=== PATIENT | female | born 1990 | race Caucasian/White ===

== ENCOUNTER 2020-12-25 10:48 | Emergency (ER) | payer MEDICAID, SELFPAY ==
[2020-12-25 10:54] VITALS: BP 126/80; PULSE 82; RESP 20; TEMP 36.6; O2SAT 98
--- NOTE | 2020-12-25 11:02 | ED.GENADUL_ITS ---
Discharge Plan Disposition Patient Disposition: HOME Condition: Stable Discharge Details Clinical Impression: Threatened in first trimester Primary Care Provider: Unknown,Unknown ED Provider: Allan Rodriguez Home Meds and New Rx's Prescriptions: No Action No Known Home Meds RF: 0 Discharge Instructions Instructions: Miscarriage (ED) Additional Instructions: Your examination is very concerning for a miscarriage. Your blood type is O+ and you do not require an injection of RhoGam now. Your beta hCG quantitative is 2298, I do recommend that you have this rechecked in the next 2 days. I have set you up for an ultrasound tomorrow to further evaluate your ongoing symptoms. I recommend reaching out to our radiology department first thing the morning at 7:30 AM. In the meantime please watch for new or worsening symptoms and return to the ER for any concerns. Otherwise I recommend that you contact your enterprise business architect and your primary care provider tomorrow to discuss your ER visit, ongoing symptoms, and need for outpatient reevaluation. Discharge Data Discharge Date/Time-TO BE ENTERED AT DEPARTURE: 12/25/20 12:35 Medical Decision Making This is a 30-year-old female G1, P0, had an [id number] positive test, ultrasound on Saturday at [facility] revealed a viable , 6 weeks 6 days. Patient states that on she developed lower abdominal cramping and spotting, both her enterprise business architect and validation technician knew that she was symptomatic at that time since then she states that she has had increased vaginal bleeding and noticed some clots but no tissues. Clinically she appears well, nontoxic, hemodynamically stable. Blood pressure 126/80, pulse 82, afebrile, O2 sats 98% on room air. Plan is to obtain IV access, routine laboratory values including a type and screen as well as a quantitative hCG. Patient is unsure of her blood type, may need RhoGam if Rh-. Unfortunately it is the weekend and I cannot obtain ultrasound emergently at this time but will set her up for an ultrasound tomorrow morning. Given her other care is at [facility] we did discuss that she would be interested in obtaining primary care and/or METAL FABRICATOR WELDER care through our facility the patient would like to continue with her current regimen. Patient is comfortable with this plan and has no additional questions or concerns. We did discuss pelvic exam in the setting but after using shared decision-making, likely will not change the outcome here in the ER, and patient will have ultrasound in the morning. I do believe this to be a reasonable plan. Laboratory values reveal no leukocytosis or anemia. Platelet count 297. Electrolytes unremarkable, creatinine 0.6 with a GFR greater than 60. Beta hCG 2290. Urinalysis moderate blood 20-50 red cells but no signs of infection. Blood type O+. Patient remains hemodynamically stable. We discussed her presentation, evaluation and lab values. Examination is certainly concerning for miscarriage. Patient plans to have ultrasound tomorrow morning to further evaluate her symptoms and possibly confirm or concerns. Strict discharge and return precautions provided. Otherwise she will contact her enterprise business architect tomorrow to make her aware of her ER visit need for outpatient reevaluation. Patient has no additional questions or concerns and is comfortable with this plan. This documentation was generated using [employer] system, please disregard any oddities of phrase or misspellings. Lab Data Lab results reviewed: Yes I reviewed the patient's lab results. Labs: Laboratory Tests Range/Units 12/25/20 12/25/20 12/25/20 11:00 11:00 11:00 WBC (4.4-10.8) 10^3/uL 10.65 RBC (3.93-5.22) 10^6/uL 4.47 Hgb (11.2-15.7) g/dL 13.2 Hct (36.0-46.0) % 38.3 MCV (80-95) fL 85.7 MCH (27.0-33.0) pg 29.5 MCHC (32.0-36.0) % 34.5 RDW (11.7-14.6) % 11.8 Plt Count (130-400) 10^3/uL 297 MPV (8.0-11.0) fL 10.5 Immature Gran % 0.2 Neutrophils % 68.3 Lymphocytes % 24.0 Monocytes % 5.7 Eosinophils % 1.4 Basophils % 0.4 Nucleated RBC % % 0 Absolute Neutrophils (1.2-6.7) 10^3/uL 7.27 H Absolute Lymphocytes (1.2-3.4) 10^3/uL 2.56 Absolute Monocytes (0.1-0.8) 10^3/uL 0.61 Absolute Eosinophils (0.0-0.7) 10^3/uL 0.15 Absolute Basophils (0.0-0.2) 10^3/uL 0.04 Sodium (136-145) mmol/L 139 Potassium (3.5-5.1) mmol/L 3.8 Chloride (98-107) mmol/L 102 Carbon Dioxide (21.0-32.0) mmol/L 26.1 Anion Gap (3-11) mmol/L 10.9 BUN (7-18) mg/dL 13 Creatinine (0.55-1.02) mg/dL 0.6 Estimated GFR/1.73 m2 (mL/min/1.73m2) >= 60.00 Glucose (74-106) mg/dL 99 Calcium (8.5-10.1) mg/dL 8.6 Total Bilirubin (0.2-1.0) mg/dL 0.3 AST (15-37) U/L 17 ALT (14-59) U/L 30 Alkaline Phosphatase (46-116) U/L 76 Total Protein (6.4-8.2) g/dL 8.0 Albumin (3.4-5.0) g/dL 4.0 Beta HCG, Quant (1-3) mIU/mL 2290 H Urine Color (Yellow) Urine Clarity (Clear) Urine pH (5-8) Ur Specific Marsteller (1.005-1.025) Urine Protein (Negative) mg/dL Urine Ketones (Negative) mg/dL Urine Blood (Negative) Urine Nitrite (Negative) Urine Bilirubin (Negative) Urine Urobilinogen (Up TO 0.2) EU/dL Ur Leukocyte Esterase (Negative) Urine RBC (0-2) HPF Urine WBC (0-5) HPF Ur Epithelial Cells (Negative) HPF Urine Crystals (Negative) HPF Urine Bacteria (Negative) HPF Urine Casts (Negative) LPF Urine Mucus (Negative) Ur Culture Indicated? Urine Glucose (Negative) mg/dL Patient ABO/Rh O Positive Antibody Screen NEGATIVE Range/Units 12/25/20 11:14 WBC (4.4-10.8) 10^3/uL RBC (3.93-5.22) 10^6/uL Hgb (11.2-15.7) g/dL Hct (36.0-46.0) % MCV (80-95) fL MCH (27.0-33.0) pg MCHC (32.0-36.0) % RDW (11.7-14.6) % Plt Count (130-400) 10^3/uL MPV (8.0-11.0) fL Immature Gran % Neutrophils % Lymphocytes % Monocytes % Eosinophils % Basophils % Nucleated RBC % % Absolute Neutrophils (1.2-6.7) 10^3/uL Absolute Lymphocytes (1.2-3.4) 10^3/uL Absolute Monocytes (0.1-0.8) 10^3/uL Absolute Eosinophils (0.0-0.7) 10^3/uL Absolute Basophils (0.0-0.2) 10^3/uL Sodium (136-145) mmol/L Potassium (3.5-5.1) mmol/L Chloride (98-107) mmol/L Carbon Dioxide (21.0-32.0) mmol/L Anion Gap (3-11) mmol/L BUN (7-18) mg/dL Creatinine (0.55-1.02) mg/dL Estimated GFR/1.73 m2 (mL/min/1.73m2) Glucose (74-106) mg/dL Calcium (8.5-10.1) mg/dL Total Bilirubin (0.2-1.0) mg/dL AST (15-37) U/L ALT (14-59) U/L Alkaline Phosphatase (46-116) U/L Total Protein (6.4-8.2) g/dL Albumin (3.4-5.0) g/dL Beta HCG, Quant (1-3) mIU/mL Urine Color (Yellow) Yellow Urine Clarity (Clear) Sl Cloudy Urine pH (5-8) 7.0 Ur Specific Marsteller (1.005-1.025) 1.025 Urine Protein (Negative) mg/dL Negative Urine Ketones (Negative) mg/dL Negative Urine Blood (Negative) Moderate H Urine Nitrite (Negative) Negative Urine Bilirubin (Negative) Negative Urine Urobilinogen (Up TO 0.2) EU/dL 0.2 Ur Leukocyte Esterase (Negative) Negative Urine RBC (0-2) HPF 20-50 H Urine WBC (0-5) HPF 0-2 Ur Epithelial Cells (Negative) HPF Few Urine Crystals (Negative) HPF Negative Urine Bacteria (Negative) HPF Rare Urine Casts (Negative) LPF Negative Urine Mucus (Negative) Negative Ur Culture Indicated? No Urine Glucose (Negative) mg/dL Negative Patient ABO/Rh Antibody Screen HPI General Mode of arrival: ambulatory . Date/Time Provider Initiated Documentation: 12/25/20 10:51 . Limitations to Documentation: no limitations . Information obtained by: patient . HPI Narrative: This is a 30-year-old female, denies any significant past medical history presenting to the ER today reporting lower abdominal cramping, vaginal bleeding, concern for miscarriage. Patient states that she tested +3 weeks ago for a home test, subsequently contacted her enterprise business architect although she was not evaluated set up for an ultrasound. Patient states that she developed a cramping and spotting on , had outpatient ultrasound at [facility] on Saturday which revealed a normal , weeks, 6 days. Since that time she has had increased cramping and bleeding, now bright red with some clotting, no obvious tissue passing. This is her first . Patient denies recent illness or trauma, fever, nausea, vomiting, chest pain, shortness of breath. The patient is unsure of her blood type. 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 Review of Systems Constitutional Constitutional: Denies fever(s) and Denies headache(s) ENT Ears, Nose, Mouth, and Throat: Denies headache(s) Cardiovascular Cardiovascular: Denies chest pain and Denies dyspnea Respiratory Respiratory: Denies cough and Denies dyspnea Gastrointestinal Gastrointestinal: Reports abdominal pain, Denies nausea and Denies vomiting Genitourinary Genitourinary: Reports abnormal vaginal bleeding, Denies dysuria and Denies vaginal discharge Musculoskeletal Musculoskeletal: Denies back pain Integumentary/Breasts Skin/Breast: Denies rash Neurologic Neurologic: Denies headache(s) Hematologic/Lymphatic Hematologic/Lymphatic: Denies easy bleeding and Denies easy bruising PFSH Social History Smoking/Tobacco Use Status: Never Smoking risk assessment performed?: Yes Alcohol Intake: never Drug use: Never Substance use type: does not use Do you feel safe at home: Yes Do you feel safe in your relationship?: Yes Exam Const General: cooperative, healthy appearing, comfortable, no acute distress and anxious (Tearful) Orientation: alert, awake and oriented x3 HENMT Head: normal to inspection, normocephalic and atraumatic Face and sinus: normal facial exam Mouth: moist mucous membranes Eyes General: appearance normal, both eyes and all related structures Conjunctivae: conjunctivae normal Neck Neck: normal visual inspection, trachea midline and supple Resp Effort & Inspection: normal respiratory effort and able to speak in complete sentences Auscultation: clear to auscultation bilaterally Cardio Rate: regular rate Rhythm: regular rhythm GI Inspection: normal to inspection Palpation: soft, not firm, no guarding, no pulsatile masses and tender (Diffuse mild lower abdominal-suprapubic discomfort) with no rebound tenderness Auscultation: normal bowel sounds General: deferred Back/Spine/Pelvis Back: no CVA tenderness and No back tenderness Skin General skin exam: no rashes or lesions noted Neuro General: patient alert, patient awake, moves all extremities and no focal motor deficits Cognition: normal cognition Speech: speech normal Gait: normal gait Sensory Exam: no sensory deficits noted Extrem General: normal to inspection, full ROM and capillary refill normal Psych Appearance: grossly normal Mental Status: mental status grossly normal Course Vital Signs Vital signs: Vital Signs Temperature 36.6 C 12/25/20 10:54 Pulse 82 12/25/20 10:54 Respiratory Rate 20 12/25/20 10:54 Blood Pressure 126/80 12/25/20 10:54 Pulse Oximetry 98 12/25/20 10:54 Temperature 36.6 C 12/25/20 10:54 Temperature Source Temporal Artery Scan 12/25/20 10:54 Pulse 82 12/25/20 10:54 Respiratory Rate 20 12/25/20 10:54 Blood Pressure 126/80 12/25/20 10:54 Blood Pressure Position Supine 12/25/20 10:54 Pulse Oximetry 98 12/25/20 10:54 Oxygen Delivery Method Room Air 12/25/20 10:54 Oxygen Flow Rate 0 12/25/20 10:54 Pain Level 3 12/25/20 10:54
[2020-12-25 11:11] LABS: Abs Immature Grans 0.02 10^3/uL (0.0-0.06); Absolute Basophil Count 0.04 10^3/uL (0.0-0.2); Absolute Eosinophil Count 0.15 10^3/uL (0.0-0.7); Absolute Lymphocyte Count 2.56 10^3/uL (1.2-3.4); Absolute Monocyte Count 0.61 10^3/uL (0.1-0.8); Absolute Neutrophil Count 7.27 10^3/uL (1.2-6.7); Basophils % 0.4; Eosinophils % 1.4; HCT 38.3 % (36.0-46.0); HGB 13.2 g/dL (11.2-15.7); Immature Grans % 0.2; MCH 29.5 pg (27.0-33.0); MCHC 34.5 % (32.0-36.0); MCV 85.7 fL (80-95); MPV 10.5 fL (8.0-11.0); Monocytes % 5.7; Neutrophils % 68.3; Nucleated RBC 0 %; Platelet Count 297 10^3/uL (130-400); RBC 4.47 10^6/uL (3.93-5.22); RDW 11.8 % (11.7-14.6); RDW-SD 36.8 fL; WBC 10.65 10^3/uL (4.4-10.8)
[2020-12-25 11:19] LABS: Bilirubin Negative (Negative); Blood Moderate (Negative); Clarity Sl Cloudy (Clear); Glucose Negative (Negative); Ketones Negative (Negative); Leukocyte Esterase Negative (Negative); Nitrite Negative (Negative); Specific Gravity 1.025 (1.005-1.025); Urobilinogen 0.2 EU/dL (Up TO 0.2)
[2020-12-25 11:26] LABS: Bacteria Rare HPF (Negative); Casts Negative LPF (Negative); Crystals Negative HPF (Negative); Epithelial Cells Few HPF (Negative); Mucus Negative (Negative); RBC 20-50 HPF (0-2); WBC 0-2 HPF (0-5)
[2020-12-25 11:27] LABS: C & S Indicated? No
[2020-12-25 11:46] LABS: ALT 30 U/L (14-59); AST 17 U/L (15-37); Alkaline Phosphatase 76 U/L (46-116); Anion Gap 10.9 mmol/L (3-11); BUN 13 mg/dL (7-18); Bilirubin, Total 0.3 mg/dL (0.2-1.0); CO2 26.1 mmol/L (21.0-32.0); CREATININE 0.6 mg/dL (0.55-1.02); Calcium 8.6 mg/dL (8.5-10.1); Chloride 102 mmol/L (98-107); Glucose 99 mg/dL (74-106); HCG Quant, Pregnancy 2290 mIU/mL (1-3); Potassium 3.8 mmol/L (3.5-5.1); Sodium 139 mmol/L (136-145)
--- NOTE | 2020-12-25 12:09 | NUR.NOTE ---
Nursing Note: Referral faxed to DI for a pelvis/transvaginal US to be done SaturdayDec 26 with follow up in ED. Copy to [facility], [place]/RAMON Merritt. Leslie Alexander
[2020-12-25 12:29] VITALS: BP 135/86; PULSE 84; RESP 16; TEMP 37.1; O2SAT 99
== END 2020-12-25 12:35 | disposition home or self-care (01) ==
PROVIDERS: Emergency Provider Physician Assistant
DX: O20.0 Threatened abortion (principal); Z3A.01 Less than 8 weeks gestation of pregnancy
CPT/HCPCS: 36415; 80053; 86850; 86900; 86901; 99283; 81003; 81015; 84702; 85025

== ENCOUNTER 2021-07-10 02:27 | Outpatient (CLI) | payer MEDICAID, SELFPAY ==
--- NOTE | 2021-07-10 | DI.US_ITS ---
Exam(s) US OB 2-3 TRIMESTER EXAM: US OB 2-3 TRIMESTER CLINICAL HISTORY: ANATOMY SCAN, MAGDALENO 11/26/21, FAX [phone]. TECHNIQUE: Transabdominal obstetrical ultrasound performed. COMPARISON: No exams were available for comparison FINDINGS: Transabdominal obstetrical ultrasound performed. FINDINGS: Number of fetuses: One. position: Cephalic heart rate: 157 bpm. Placental location: There is an anterior and fundal grade 1 placenta. No evidence of previa. Amniotic fluid index: Amount of fluid is within normal limits. ANATOMICAL SURVEY: Within normal limits. BIOMETRIC DATA: BPD: 5.2cm consistent with 21 weeks 5 days. HC: 19.1cm consistent with 21 weeks 3 days. AC: 16.0cm consistent with 21 weeks 1 day. FL: 3.5cm consistent with 21 weeks. Cisterna Magna: 4.8 mm Cerebellum: 2.1 cm EFW: 401 grms 92% Composite Age: 21 weeks 2 days EDC by US: 11/18/2021 IMPRESSION: 1. Single live intrauterine gestation as above. 2. Normal anatomic survey. DATA REPOSITORY:
== END 2021-07-10 02:47 ==
PROVIDERS: Visit Provider Midwife
DX: Z34.92 Encounter for supervision of normal pregnancy, unspecified, second trimester (principal); Z3A.21 21 weeks gestation of pregnancy
CPT/HCPCS: 76805

== ENCOUNTER 2021-10-21 11:12 | Outpatient (CLI) | payer MEDICAID, SELFPAY ==
[2021-10-21 13:52] VITALS: BP 125/85; PULSE 110; TEMP 36.9
[2021-10-21 14:37] LABS: HCT 35.1 % (36.0-46.0); HGB 12.3 g/dL (11.2-15.7); MCH 29.9 pg (27.0-33.0); MCV 85 fL (80-95); MPV 12.5 fL (8.0-11.0); Platelet Count 184 10^3/uL (130-400); RBC 4.11 10^6/uL (3.93-5.22); RDW 12.4 % (11.7-14.6); RDW-SD 38.5 fL; WBC 10.57 10^3/uL (4.4-10.8)
[2021-10-21 14:53] LABS: ALT 17 U/L (14-59); AST 16 U/L (15-37); Albumin 3.1 g/dL (3.4-5.0); Alkaline Phosphatase 86 U/L (46-116); Anion Gap 7.7 mmol/L (3-11); BUN 9 mg/dL (7-18); Bilirubin, Total 0.3 mg/dL (0.2-1.0); CO2 25.3 mmol/L (21.0-32.0); CREATININE 0.5 mg/dL (0.55-1.02); Calcium 9.1 mg/dL (8.5-10.1); Chloride 105 mmol/L (98-107); Glucose 83 mg/dL (74-106); LDH 161 U/L (81-234); Potassium 3.9 mmol/L (3.5-5.1); Sodium 138 mmol/L (136-145); Total Protein 7.1 g/dL (6.4-8.2); Uric Acid 3.4 mg/dL (2.6-6.0)
--- NOTE | 2021-10-21 15:07 | PDOC.NST_ITS ---
Date of service: 10/21/21 Time of Service: 14:15 NST Evaluation Reason for NST Reasons for Nonstress Test: GESTATIONAL HYPERTENSION Gestational Age Gestational Age in Weeks and Days: 34 Weeks and 6Days Test and Monitor Explained Test/Monitor Explained: Test Explained, Monitor Explained and Patient Verbalized Understanding Vital Signs Blood Pressure: 125/85 Pulse: 110 Temperature: 98.4 F Urine Results Urine Protein: Negative Urine Ketones: Negative Urine Glucose: Negative Urine Blood: Negative NST Information Date on Monitor: 10/21/21 Time on Monitor: 13:46 Date off Monitor: 10/21/21 Time off Monitor: 14:19 Total Time on Monitor: 33 NST Interventions: None NST Evaluation Patient States Movement: Present FHR Baseline: 125 Variability: Moderate 6-25 bpm Accelerations: 15x15 Decelerations: None NST Results: Reactive Note NST Note Note: Jie White presented for NST after a call from Marcy Castillo [facility] from [facility] requesting patient be evaluated due to some BP elevations at home. Jie denies any sign or symptoms of pre-eclampsia. Has had a healthy to date. Reports her baby, Parviz is active and denies contractions or vaginal discharge. Her BP here was normal range and I did urine dip for protein which was negative. I have sent urine for protein / creatinine ratio per CPM request as well as serum pre-eclampsia labs. Jie was discharged when NST was reactive and urine was negative for protein as she is 34 w 6d and no medical indication to intervene. I will call her with her lab results and her CPM with results as they are available. Patient will continue her care with her CPM. JESSA NST Reviewed and Verified by: Mellisa Aguilar
[2021-10-21 15:11] VITALS: BP 125/85; PULSE 110; TEMP 36.9
[2021-10-21 15:41] LABS: COMMENT (LAB VIEW ONLY) 91.95 mg/dL; Prot/Crea Ur Ratio 0.15
== END 2021-10-21 14:35 | disposition home or self-care (01) ==
LOC: BCD 11:16 → OBS 13:52
PROVIDERS: Visit Provider Advanced Practice Midwife
DX: O13.3 Gestational [pregnancy-induced] hypertension without significant proteinuria, third trimester (principal); Z3A.34 34 weeks gestation of pregnancy
CPT/HCPCS: 59025; 80053; 85027; 82565; 83615; 84156; 84550

== ENCOUNTER 2021-10-29 13:23 | Outpatient (CLI) | payer MEDICAID, SELFPAY ==
[2021-10-29 15:02] VITALS: BP 138/94; PULSE 92; TEMP 36.8
[2021-10-29 15:22] VITALS: BP 138/94; PULSE 92
[2021-10-29 15:33] VITALS: BP 144/85; PULSE 88
[2021-10-29 15:56] LABS: HCT 35.5 % (36.0-46.0); HGB 12.5 g/dL (11.2-15.7); MCH 29.6 pg (27.0-33.0); MCHC 35.2 % (32.0-36.0); MCV 84 fL (80-95); MPV 12.8 fL (8.0-11.0); Platelet Count 171 10^3/uL (130-400); RBC 4.22 10^6/uL (3.93-5.22); RDW 12.7 % (11.7-14.6); RDW-SD 38.3 fL; WBC 10.86 10^3/uL (4.4-10.8)
[2021-10-29 16:07] LABS: PROTEIN 32.7 mg/dL; Prot/Crea Ur Ratio 0.13
[2021-10-29 16:08] LABS: ALT 19 U/L (14-59); AST 22 U/L (15-37); Alkaline Phosphatase 95 U/L (46-116); Anion Gap 9.9 mmol/L (3-11); BUN 8 mg/dL (7-18); Bilirubin, Total 0.3 mg/dL (0.2-1.0); CO2 25.1 mmol/L (21.0-32.0); CREATININE 0.5 mg/dL (0.55-1.02); Calcium 8.6 mg/dL (8.5-10.1); Chloride 104 mmol/L (98-107); Estimated GFR 129.32 (mL/min/1.73m2); Glucose 123 mg/dL (74-106); Potassium 3.7 mmol/L (3.5-5.1); Sodium 139 mmol/L (136-145); Total Protein 7.2 g/dL (6.4-8.2); Uric Acid 3.9 mg/dL (2.6-6.0)
--- NOTE | 2021-10-30 09:36 | W.OBNST ---
Date of service: 10/29/21 Time of Service: 09:37 NST Evaluation Reason for NST Reasons for Nonstress Test: GESTATIONAL HYPERTENSION Gestational Age Gestational Age in Weeks and Days: 36 Weeks and 0Days Test and Monitor Explained Test/Monitor Explained: Test Explained, Monitor Explained and Patient Verbalized Understanding Vital Signs Blood Pressure: 138/94 Pulse: 92 Temperature: 98.2 F NST Information Date on Monitor: 10/29/21 Time on Monitor: 15:02 Date off Monitor: 10/29/21 Time off Monitor: 15:34 Total Time on Monitor: 32 NST Interventions: None Contraction Frequency: Occasional NST Evaluation Patient States Movement: Present FHR Baseline: 135 Variability: Moderate 6-25 bpm Accelerations: 15x15 Decelerations: None NST Results: Reactive Note NST Note Note: I met with the patient and her partner during her NST. She had been evaluated on last week by Mary Carmen Aguilar CNM or new onset of Gestational HTN at 35w EGA. Pt's BP had remained elevated during the week and Marcy Sung CPM reached out to me on 10/29/21. I have accepted transfer of care to [facility]. Labs on : Repeat protein creatinine ratio was normal: 0.13. All other labs normal. Patient advised to rest at home. She reports that she has been compliant. Plan at this time is to have her follow-up in the office the week of 10/30/2021. NST Reviewed and Verified by: Tasneem Mao
[2021-10-30 09:37] VITALS: BP 138/94; PULSE 92; TEMP 36.8
== END 2021-10-29 16:20 | disposition home or self-care (01) ==
LOC: BCD 13:38 → OBS 14:17
PROVIDERS: Visit Provider Obstetrics & Gynecology Gynecology
DX: O13.3 Gestational [pregnancy-induced] hypertension without significant proteinuria, third trimester (principal); Z3A.36 36 weeks gestation of pregnancy; Z13.89 Encounter for screening for other disorder
CPT/HCPCS: 59025; 36415; 80053; 85027; 86850; 86900; 86901; 82565; 84156; 84550

== ENCOUNTER 2021-11-01 03:53 | Outpatient (CLI) | payer MEDICAID, SELFPAY ==
[2021-11-01 14:07] VITALS: BP 130/85; PULSE 99
[2021-11-01 14:25] VITALS: BP 130/85; PULSE 99; TEMP 36.5
--- NOTE | 2021-11-01 15:12 | W.OBNST ---
Date of service: 11/01/21 Time of Service: 15:12 NST Evaluation Reason for NST Reasons for Nonstress Test: GESTATIONAL HYPERTENSION Gestational Age Gestational Age in Weeks and Days: 36 Weeks and 3Days Test and Monitor Explained Test/Monitor Explained: Test Explained, Monitor Explained and Patient Verbalized Understanding Vital Signs Blood Pressure: 130/85 Pulse: 99 Temperature: 97.7 F Urine Results Urine Protein: Negative Urine Ketones: Negative Urine Glucose: Negative Urine Blood: Negative NST Information Date on Monitor: 11/01/21 Time on Monitor: 13:57 Date off Monitor: 11/01/21 Time off Monitor: 14:17 Total Time on Monitor: 20 NST Interventions: PO Hydration NST Evaluation Patient States Movement: Present FHR Baseline: 145 Variability: Moderate 6-25 bpm Accelerations: 15x15 Decelerations: None NST Results: Reactive Note NST Note Note: RTO x2/wk for NST and BP checks NST Reviewed and Verified by: Daly Pedraza
[2021-11-01 15:13] VITALS: BP 130/85; PULSE 99; TEMP 36.5
== END 2021-11-01 15:00 | disposition home or self-care (01) ==
LOC: BCD 03:54 → OBS 14:03
PROVIDERS: Visit Provider Obstetrics & Gynecology
DX: O13.3 Gestational [pregnancy-induced] hypertension without significant proteinuria, third trimester (principal); Z3A.36 36 weeks gestation of pregnancy
CPT/HCPCS: 59025

== ENCOUNTER 2021-11-04 10:12 | Outpatient (CLI) | payer MEDICAID, SELFPAY ==
[2021-11-04 10:18] VITALS: BP 146/83; PULSE 85; TEMP 36.7
[2021-11-04 10:22] VITALS: BP 146/83; PULSE 85
[2021-11-04 10:58] VITALS: BP 128/81; PULSE 97
[2021-11-04 11:04] LABS: HCT 34.7 % (36.0-46.0); HGB 11.9 g/dL (11.2-15.7); MCH 29.4 pg (27.0-33.0); MCHC 34.3 % (32.0-36.0); MCV 86 fL (80-95); MPV 12.8 fL (8.0-11.0); Platelet Count 152 10^3/uL (130-400); RBC 4.05 10^6/uL (3.93-5.22); RDW 12.4 % (11.7-14.6); WBC 8.81 10^3/uL (4.4-10.8)
[2021-11-04 11:13] LABS: Prot/Crea Ur Ratio 0.14
[2021-11-04 11:28] LABS: ALT 15 U/L (14-59); AST 15 U/L (15-37); Albumin 2.8 g/dL (3.4-5.0); Alkaline Phosphatase 93 U/L (46-116); BUN 9 mg/dL (7-18); Bilirubin, Total 0.4 mg/dL (0.2-1.0); CREATININE 0.5 mg/dL (0.55-1.02); Calcium 8.3 mg/dL (8.5-10.1); Chloride 103 mmol/L (98-107); Estimated GFR 129.32 (mL/min/1.73m2); Glucose 78 mg/dL (74-106); Potassium 3.9 mmol/L (3.5-5.1); Sodium 135 mmol/L (136-145); TSH (W/Ref FT4) 1.35 uIU/mL (0.36-3.74); Total Protein 6.9 g/dL (6.4-8.2); Uric Acid 3.7 mg/dL (2.6-6.0)
--- NOTE | 2021-11-04 12:48 | W.OBNST ---
Date of service: 11/04/21 Time of Service: 12:49 NST Evaluation Reason for NST Reasons for Nonstress Test: GESTATIONAL HYPERTENSION Gestational Age Gestational Age in Weeks and Days: 36 Weeks and 6Days Test and Monitor Explained Test/Monitor Explained: Test Explained, Monitor Explained and Patient Verbalized Understanding Vital Signs Blood Pressure: 128/81 Pulse: 97 Temperature: 98.1 F NST Information Date on Monitor: 11/04/21 Time on Monitor: 10:09 Date off Monitor: 11/04/21 Time off Monitor: 10:41 Total Time on Monitor: 32 NST Interventions: PO Hydration Contraction Frequency: none NST Evaluation Patient States Movement: Present FHR Baseline: 130 Variability: Moderate 6-25 bpm Accelerations: 15x15 Decelerations: None NST Results: Reactive Note NST Note Note: labs drawn and nml Returns in 3 days for NST & BP check NST Reviewed and Verified by: Daly Pedraza
[2021-11-04 12:50] VITALS: BP 128/81; PULSE 97; TEMP 36.7
[2021-11-06 09:16] LABS: Hepatitis C Ab w Rflx HCV PCR Negative (Negative)
[2021-11-06 09:47] LABS: Thyroglobulin Antibody 108 U/mL (<=60); Thyroperoxidase Antibody 33 U/mL (<=60)
== END 2021-11-04 12:15 | disposition home or self-care (01) ==
LOC: BCD 10:13 → OBS 10:15
PROVIDERS: Visit Provider Advanced Practice Midwife
DX: O13.3 Gestational [pregnancy-induced] hypertension without significant proteinuria, third trimester (principal); Z3A.36 36 weeks gestation of pregnancy
CPT/HCPCS: 59025; 36415; 80053; 85027; 86376; 86803; 82565; 84156; 84443; 84550

== ENCOUNTER 2021-11-07 08:08 | Outpatient (CLI) | payer MEDICAID, SELFPAY ==
[2021-11-07 09:32] VITALS: BP 128/91; PULSE 91; TEMP 36.7
[2021-11-07 09:52] VITALS: BP 128/91; PULSE 91
--- NOTE | 2021-11-07 11:31 | W.OBNST ---
Date of service: 11/07/21 Time of Service: 11:32 NST Evaluation Reason for NST Reasons for Nonstress Test: GESTATIONAL HYPERTENSION Gestational Age Gestational Age in Weeks and Days: 37 Weeks and 2Days Test and Monitor Explained Test/Monitor Explained: Test Explained, Monitor Explained and Patient Verbalized Understanding Vital Signs Blood Pressure: 128/91 Pulse: 91 Temperature: 98.1 F NST Information Date on Monitor: 11/07/21 Time on Monitor: 09:36 Date off Monitor: 11/07/21 Time off Monitor: 10:15 Total Time on Monitor: 39 NST Evaluation Patient States Movement: Present FHR Baseline: 130 Variability: Moderate 6-25 bpm Accelerations: 15x15 Decelerations: None NST Results: Reactive Note NST Note Note: RTO this Saturday for NST & weekly labs IOL scheduled for 11/23/21 (39 wks) NST Reviewed and Verified by: Daly Pedraza
[2021-11-07 11:33] VITALS: BP 128/91; PULSE 91; TEMP 36.7
== END 2021-11-07 10:25 | disposition home or self-care (01) ==
LOC: BCD 08:09 → OBS 09:30
PROVIDERS: Visit Provider Advanced Practice Midwife
DX: O13.3 Gestational [pregnancy-induced] hypertension without significant proteinuria, third trimester (principal); Z3A.37 37 weeks gestation of pregnancy
CPT/HCPCS: 59025

== ENCOUNTER 2021-11-10 07:44 | Outpatient (CLI) | payer MEDICAID, SELFPAY ==
[2021-11-10 10:18] VITALS: BP 123/80; PULSE 116
[2021-11-10 10:38] VITALS: BP 123/80; PULSE 116; TEMP 36.8
--- NOTE | 2021-11-10 11:14 | W.OBNST ---
Date of service: 11/10/21 Time of Service: 11:14 NST Evaluation Reason for NST Reasons for Nonstress Test: GESTATIONAL HYPERTENSION Gestational Age Gestational Age in Weeks and Days: 37 Weeks and 5Days Test and Monitor Explained Test/Monitor Explained: Test Explained, Monitor Explained and Patient Verbalized Understanding Vital Signs Blood Pressure: 123/80 Pulse: 116 Temperature: 98.2 F Urine Results Urine Protein: Negative Urine Ketones: Negative Urine Glucose: Negative Urine Blood: Negative NST Information Date on Monitor: 11/10/21 Time on Monitor: 10:09 Date off Monitor: 11/10/21 Time off Monitor: 10:33 Total Time on Monitor: 24 NST Interventions: PO Hydration Contraction Frequency: irritability NST Evaluation Patient States Movement: Present FHR Baseline: 135 Variability: Moderate 6-25 bpm Accelerations: 15x15 Decelerations: None NST Results: Reactive Note NST Note Note: NST is reactive and reassuring. Patient is feeling very well and happy that she is able to continue with expectant management until 11/23 as of today. BP WNL. Will do labs next NST. KH NST Reviewed and Verified by: Mellisa Aguilar
[2021-11-10 11:15] VITALS: BP 123/80; PULSE 116; TEMP 36.8
== END 2021-11-10 10:45 | disposition home or self-care (01) ==
LOC: BCD 07:47 → OBS 10:13
PROVIDERS: Visit Provider Advanced Practice Midwife
DX: O13.3 Gestational [pregnancy-induced] hypertension without significant proteinuria, third trimester (principal); Z3A.37 37 weeks gestation of pregnancy
CPT/HCPCS: 59025

== ENCOUNTER 2021-11-14 07:47 | Outpatient (CLI) | payer MEDICAID, SELFPAY ==
[2021-11-14] VITALS (10 sets, daily range): BP systolic 113–144; BP diastolic 63–100; PULSE 79–137; RESP 17; TEMP 36.8; O2SAT 99–100; BMI 35.2
--- OUTSIDE RECORDS SUMMARY | 2021-11-14 07:49 | XMS_ITS | Encounter Summary ---
:1990 Demographics Home Phone Preferred Language Unknown Marital Status Unknown Zoroastrian Affiliation Unknown Race Unknown Ethnic Group Unknown Author Organization [facility] Address [address] [place] [address] Care Team Providers Name Role Phone Unavailable Primary Care Provider Unavailable Encounter Details Date Type Department Care Team Description 11/04/2021 Lab Requisition [facility] Outr Resulting Lab, Pathology & Laboratory Provider [facility] [address] [place] [address] Social History Tobacco Use Types Packs/Day Years Used Date Never Assessed Sex Assigned at Date Recorded Not on file documented as of this encounter Plan of Treatment Not on filedocumented as of this encounter Procedures Procedure Name Priority Date/Time Associated Diagnosis Comme nts HEPATITIS C AB W Routine 11/04/2021 10:50 Results for this REFLEX TO HCV RNA EDT procedure are in BY PCR the results section. documented in this encounter Results HEPATITIS C AB W REFLEX TO HCV RNA BY PCR (11/04/2021 10:50 EDT) Pathologist Sig nature Hep C Antibody Negative Negative [facility] Specimen Blood - Venous blood (substance) Performing Organization Address City/State/ZIP Code Phon e Number [facility] [address] [place] [address] SERVICES documented in this encounter Visit Diagnoses Not on filedocumented in this encounter
--- OUTSIDE RECORDS SUMMARY | 2021-11-14 07:49 | XMS_ITS | CCD ---
:1990 Author Care Team Providers Name Role Phone DUANE ALBA Attending Physician Unavailable Vital Signs Unknown or Not Available. Allergies Unknown or Not Available. Procedures Unknown or Not Available. History of Immunizations Unknown or Not Available. Problems Unknown or Not Available. Results GROUP B STREP DNA BY PCR - Collect Date/ Time: 10/27/2021 16:00 Test Name Code Test Result Test Units Test Ref Range GROUP B STREP NEGATIVE N/A Normal: Negati ve OTHER SOURCE: VAG/RECTA N/A PCN ALLERGY? NO N/A Copy Sent to OB? YES N/A Active Medications Unknown or Not Available. Medications Administered During Visit Unknown or Not Available. Encounters Unknown or Not Available. Social History Unknown or Not Available. Patient Decision Aids Unknown or Not Available. Discharge Instructions You were admitted to [facility] on 10/28/2021 13:09 You had the following tests done: GROUP B STREP DNA BY PCR You were discharged from [facility] on 10/28/2021 13:09 Should you have any questions prior to d ischarge, please contact a member of your healthcare team. If you have left the ho spital and have any questions, please contact your primary care physician. Chief Complaint and Reason For Visit Unknown or Not Available. Function Status Unknown or Not Available. Plan of Care Unknown or Not Available. Referral/Transition of Care Unknown or Not Available.
--- OUTSIDE RECORDS SUMMARY | 2021-11-14 07:49 | XMS_ITS | Encounter Summary ---
:1990 Demographics Home Phone Preferred Language Unknown Marital Status Unknown Gnosticism Affiliation Unknown Race Unknown Ethnic Group Unknown Author Organization [facility] Address [address] [place] [address] Care Team Providers Name Role Phone Unavailable Primary Care Provider Unavailable Encounter Details Date Type Department Care Team Description 08/21/2021 Lab Requisition [facility] Outr Resulting Lab, Pathology & Laboratory Provider [facility] [address] [place] [address] Social History Tobacco Use Types Packs/Day Years Used Date Never Assessed Sex Assigned at Date Recorded Not on file documented as of this encounter Plan of Treatment Not on filedocumented as of this encounter Procedures Procedure Name Priority Date/Time Associated Diagnosis Comme nts T3 FREE Routine 08/21/2021 19:52 EDT Results for this procedure are i n the results section . T3, TOTAL Routine 08/21/2021 19:52 EDT Results for this procedure are i n the results section . documented in this encounter Results T3 FREE (08/21/2021 19:52 EDT) Pathologist Sig nature T3, Free 3.3 2.8 - 5.3 pg/mL [facility] Specimen Blood - Venous blood (substance) Performing Organization Address [facility]/ZIP Code Phon e Number [facility] [address] [place] [address] SERVICES (ABNORMAL) T3, TOTAL (08/21/2021 19:52 EDT) Pathologist Sig nature T3, Total 193 (H) 97 - 169 ng/dL [facility] Specimen Blood - Venous blood (substance) Performing Organization Address City/[facility]/ZIP Code Phon e Number [facility] [address] [place] [address] SERVICES documented in this encounter Visit Diagnoses Not on filedocumented in this encounter
--- OUTSIDE RECORDS SUMMARY | 2021-11-14 07:49 | XMS_ITS | Encounter Summary ---
:1990 Demographics Home Phone Preferred Language Unknown Marital Status Unknown Orthodox Affiliation Unknown Race Unknown Ethnic Group Unknown Author Organization [facility] Address [address] [place] [address] Care Team Providers Name Role Phone Unavailable Primary Care Provider Unavailable Encounter Details Date Type Department Care Team Description 03/24/2021 Lab Requisition [facility] Outr Resulting Lab, Pathology & Laboratory Provider [facility] [address] [place] [address] Social History Tobacco Use Types Packs/Day Years Used Date Never Assessed Sex Assigned at Date Recorded Not on file documented as of this encounter Plan of Treatment Not on filedocumented as of this encounter Procedures Procedure Name Priority Date/Time Associated Comments Diagnosis CHLAMYDIA/N. Routine 03/24/2021 15:00 Results for this GONORRHOEAE AMPLIFIED EST proced ure are in RNA the results section. documented in this encounter Results CHLAMYDIA/N. GONORRHOEAE AMPLIFIED RNA (03/24/2021 15:00 EST) Pathologist Sig nature Gonococcus Result Negative Negative [facility] Chlamydia Result Negative Negative [facility] Specimen Swab - Entire vagina (body structure) Performing Organization Address City/State/ZIP Code Phon e Number [facility] [address] [place] [address] SERVICES documented in this encounter Visit Diagnoses Not on filedocumented in this encounter
--- OUTSIDE RECORDS SUMMARY | 2021-11-14 07:49 | XMS_ITS | Encounter Summary ---
:1990 Demographics Home Phone Preferred Language Unknown Marital Status Unknown Jainism Affiliation Unknown Race Unknown Ethnic Group Unknown Author Organization [facility] Address [address] [place] [address] Care Team Providers Name Role Phone Unavailable Primary Care Provider Unavailable Encounter Details Date Type Department Care Team Description 12/30/2020 Lab Requisition [facility] Outr Resulting Lab, Pathology & Laboratory Provider [facility] [address] [place] [address] Social History Tobacco Use Types Packs/Day Years Used Date Never Assessed Sex Assigned at Date Recorded Not on file documented as of this encounter Plan of Treatment Not on filedocumented as of this encounter Procedures Procedure Name Priority Date/Time Associated Diagnosis Comme nts THYROID ANTIBODIES Routine 12/30/2020 10:15 Resul ts for this EDT procedure are i n the results section. documented in this encounter Results (ABNORMAL) THYROID ANTIBODIES (12/30/2020 10:15 EDT) Pathologist Sig nature Anti-Thyroglobulin 273 (H) <=60 U/mL [facility] Thyroperoxidase Ab 76 (H) <=60 U/mL [facility] Specimen Blood - Venous blood (substance) Performing Organization Address City/State/ZIP Code Phon e Number [facility] [address] [place] [address] SERVICES documented in this encounter Visit Diagnoses Not on filedocumented in this encounter
--- OUTSIDE RECORDS SUMMARY | 2021-11-14 07:49 | XMS_ITS | Encounter Summary ---
:1990 Demographics Home Phone Preferred Language Unknown Marital Status Unknown Methodist Affiliation Unknown Race Unknown Ethnic Group Unknown Author Organization [facility] Address [address] [place] [address] Care Team Providers Name Role Phone Unavailable Primary Care Provider Unavailable Encounter Details Date Type Department Care Team Description 05/05/2021 Lab Requisition [facility] Outr Resulting Lab, Pathology & Laboratory Provider [facility] [address] [place] [address] Social History Tobacco Use Types Packs/Day Years Used Date Never Assessed Sex Assigned at Date Recorded Not on file documented as of this encounter Plan of Treatment Not on filedocumented as of this encounter Procedures Procedure Name Priority Date/Time Associated Diagnosis Comme nts T3 FREE Routine 05/05/2021 15:00 Results for this EST procedure are i n the results section. THYROID ANTIBODIES Routine 05/05/2021 15:00 Resul ts for this EST procedure are i n the results section. documented in this encounter Results T3 FREE (05/05/2021 15:00 EST) Pathologist Sig nature T3, Free 4.2 2.8 - 5.3 pg/mL [facility] Specimen Blood - Venous blood (substance) Performing Organization Address [facility] Phon e Number [facility] [address] [place] [address] SERVICES (ABNORMAL) THYROID ANTIBODIES (05/05/2021 15:00 EST) Pathologist Sig nature Anti-Thyroglobulin 252 (H) <=60 U/mL [facility] Thyroperoxidase Ab 57 <=60 U/mL [facility] Specimen Blood - Venous blood (substance) Performing Organization Address City/[facility]/ZIP Code Phon e Number [facility] [address] [place] [address] SERVICES documented in this encounter Visit Diagnoses Not on filedocumented in this encounter
[2021-11-14 10:16] LABS: HCT 34.4 % (36.0-46.0); HGB 12.1 g/dL (11.2-15.7); MCH 29.8 pg (27.0-33.0); MCHC 35.2 % (32.0-36.0); MCV 85 fL (80-95); MPV 12.5 fL (8.0-11.0); Platelet Count 161 10^3/uL (130-400); RBC 4.06 10^6/uL (3.93-5.22); RDW 12.3 % (11.7-14.6); RDW-SD 37.7 fL; WBC 8.89 10^3/uL (4.4-10.8)
[2021-11-14 10:32] LABS: ALT 13 U/L (14-59); AST 16 U/L (15-37); Albumin 2.9 g/dL (3.4-5.0); Alkaline Phosphatase 117 U/L (46-116); Anion Gap 10.9 mmol/L (3-11); BUN 9 mg/dL (7-18); Bilirubin, Total 0.3 mg/dL (0.2-1.0); CO2 21.1 mmol/L (21.0-32.0); CREATININE 0.6 mg/dL (0.55-1.02); Calcium 8.6 mg/dL (8.5-10.1); Chloride 104 mmol/L (98-107); Estimated GFR 123.76 (mL/min/1.73m2); Glucose 86 mg/dL (74-106); LDH 154 U/L (81-234); Sodium 136 mmol/L (136-145); Total Protein 7.1 g/dL (6.4-8.2); Uric Acid 4.4 mg/dL (2.6-6.0)
--- NOTE | 2021-11-14 10:43 | NUR.NOTE ---
MD. Juares at bedside speaking with patient on options now that baby is breech. Options given to patient were do nothing to wait to see if he flips, do a version, or head for a . Pt has opted for version. All questions/concerns addressed and answered. Patient verbalizes understanding. Nursing Note:
[2021-11-14 10:44] LABS: COMMENT (LAB VIEW ONLY) 110.24 mg/dL; PROTEIN 20.1 mg/dL; Prot/Crea Ur Ratio 0.18
--- NOTE | 2021-11-14 10:47 | W.OBNST ---
Date of service: 11/14/21 Time of Service: 10:57 NST Evaluation Reason for NST Reasons for Nonstress Test: GESTATIONAL HYPERTENSION Gestational Age Gestational Age in Weeks and Days: 38 Weeks and 2Days Test and Monitor Explained Test/Monitor Explained: Test Explained, Monitor Explained and Patient Verbalized Understanding Vital Signs Blood Pressure: 142/100 Pulse: 93 Temperature: 98.3 F Urine Results Urine Protein: Positive Urine Ketones: Negative Urine Glucose: Negative Urine Blood: Negative NST Information Time on Monitor: 10:06 NST Interventions: PO Hydration NST Evaluation Patient States Movement: Present FHR Baseline: 140 Variability: Moderate 6-25 bpm Accelerations: 15x15 Decelerations: None NST Results: Reactive Note Presentation (breech confirmed by bedside US by CNBjorn and Dr. Mao) NST Note Note: NST is reactive. BP elevated. Pre-eclampsia labs remain normal. Dr. Mao notified of breech presentation and will assume care for possible ECV. NST Reviewed and Verified by: Mellisa Aguilar
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
[2021-11-14] MEDS: Normal Saline Flush 10 ML SYR IVP (11:30)
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
[2021-11-14] MEDS: Lactated Ringers 1,000 ML 30 ML IV (11:50)
[2021-11-14] MEDS: Terbutaline 1 MG/ML VIAL 0.25 MG SC (11:51)
[2021-11-14 12:12] LABS: Source Nasal/Nares
[2021-11-14 12:59] LABS: COVID-19 PCR Negative (Negative)
--- NOTE | 2021-11-14 13:58 | PGE_ITS ---
Date of Service Date of service: 11/14/21 Time of Service: 13:58 Assessment and Plan Assessment and plan (1) Preop examination: Status: Acute Assessment and plan: Preoperative history and physical performed in anticipation of primary low transverse delivery to be performed on 11/15/2021 for breech presentation after unsuccessful external cephalic version. Preop counseling: She was informed of the risks of procedure including risk of damage to bowel, bladder, and blood vessels during the time of the delivery. If any of those injuries were to occur she may require a repair at the time of surgery or blood transfusion or possible hysterectomy. I reviewed the risk of infection and the administration of IV Abx prior to the surgery. By virtue of having a LTCS for breech presentation she would be a candidate for a ADRIÁN/ in the future. Her questions were answered. Informed consent was obtained. (2) Failed external cephalic version: Status: Acute (3) Gestational hypertension: Status: Acute Subjective Subjective Interval history since last seen: Patient underwent an unsuccessful external cephalic version approximately 2 hours ago. Prior to the external cephalic version she was noted to have contractions every 2 to 3 minutes by external tocometer. After the procedure the contractions every 2 to 3 minutes have persisted. Mild to palpation. Sterile vaginal exam prior to the external cephalic version showed her to be fingertip 25% effaced with a high presenting breech presentation. I have reviewed the heart rate monitoring strip and it recommended the patient be discharged to home with follow-up for a primary delivery on 11/15/2021. Exam Const General: no acute distress Nutritional Appearance: obese Orientation: alert, awake and oriented x3 Resp Effort & Inspection: normal respiratory effort Auscultation: clear to auscultation bilaterally Cardio Rate: regular rate Rhythm: regular rhythm GI Inspection: normal to inspection and no abdominal wall ecchymosis Palpation: no guarding, nontender and other (No focal uterine tenderness) OB/External & Speculum: deferred Other: heart rate 150 range - category 1 tracing. Contractions every 2 to 3 minutes. Back/Spine/Pelvis Back: no CVA tenderness Pelvis: pain with anterior-posterior compression Skin General skin exam: no rashes or lesions noted Extrem General: normal to inspection Psych Appearance: grossly normal Mental Status: mental status grossly normal Speech and Movement: speech and movement normal Mood: congruent mood Affect: normal affect Attitude: cooperative Thought Process: normal Objective Last Vital Signs Temp 98.2 F 11/14/21 12:17 Pulse 93 H 11/14/21 12:32 Resp 17 11/14/21 12:17 BP 119/74 11/14/21 12:32 Pulse Ox 100 11/14/21 12:30 Laboratory Results - last 24 hr 11/14/21 11/14/21 11/14/21 10:10 10:11 10:11 WBC 8.89 RBC 4.06 Hgb 12.1 Hct 34.4 L MCV 85 MCH 29.8 MCHC 35.2 RDW 12.3 Plt Count 161 MPV 12.5 H Sodium 136 Potassium 4.0 Chloride 104 Carbon Dioxide 21.1 Anion Gap 10.9 BUN 9 Creatinine 0.6 Est GFR (CKD-EPI 2020) 123.76 Glucose 86 Uric Acid 4.4 Calcium 8.6 Total Bilirubin 0.3 AST 16 ALT 13 L Alkaline Phosphatase 117 H Lactate Dehydrogenase 154 Total Protein 7.1 Albumin 2.9 L Ur Random Creatinine 110.24 U Random Total Protein 20.1 U [place] Prot/Creat Ratio 0.18 COVID-19 Source SARS-CoV-2 (PCR) Patient ABO/Rh Antibody Screen 11/14/21 11/14/21 11:19 11:50 WBC RBC Hgb Hct MCV MCH MCHC RDW Plt Count MPV Sodium Potassium Chloride Carbon Dioxide Anion Gap BUN Creatinine Est GFR (CKD-EPI 2020) Glucose Uric Acid Calcium Total Bilirubin AST ALT Alkaline Phosphatase Lactate Dehydrogenase Total Protein Albumin Ur Random Creatinine U Random Total Protein U [place] Prot/Creat Ratio COVID-19 Source Nasal/Nares SARS-CoV-2 (PCR) Negative Patient ABO/Rh O Positive Antibody Screen NEGATIVE
--- NOTE | 2021-11-14 15:28 | NUR.NOTE ---
1345 - SANYA Newby reviewed strip with MD Mao post unsuccessful version concerning contraction pattern. Per hospital policy, after a version, the patient cannot be discharged presenting with more than 2 contractions over 30 minutes. Patient's contraction pattern pre and post version was frequency of every 1-2 minutes/irritability, palpating mild. RN raised the concern to MD Mao that the patient did receive terbutaline right before procedure and the patient was reporting contraction intensity progressively getting stronger post version. Contractions still palpating mild despite patient report of increase in intensity. Patient is scheduled for a primary section for breech in the morning and had asked RN if it was possible to have the surgery today. RN spoke with MD Mao who then spoke with OR crew. The OR crew essentially said no because the team would have to be called in and it for a non urgent reason. MD Mao spoke with patient about returning in morning for scheduled section and was good for discharge home at that time. RN again reviewed contraction pattern and policy with MD, informing MD that if she still wanted to discharge patient there would need to be a special order for discharge due to the fact discharge at this time is against policy. RN reviewed with patient signs and symptoms to look out for and when to call with concerns. Nursing Note:
== END 2021-11-14 14:17 | disposition home or self-care (01) ==
LOC: BCD 07:48 → OBS 09:59
PROVIDERS: Visit Provider Advanced Practice Midwife
DX: O13.9 Gestational [pregnancy-induced] hypertension without significant proteinuria, unspecified trimester (principal); O32.1XX0 Maternal care for breech presentation, not applicable or unspecified; Z3A.38 38 weeks gestation of pregnancy
CPT/HCPCS: 59025; 36415; 59412; 80053; 85027; 86850; 86900; 86901; 87635; 96360; 96361; 96372; 82565; 83615; 84156; 84550; G0378; J3490

== ENCOUNTER 2021-11-15 07:55 | Inpatient (IN) | payer MEDICAID, SELFPAY ==
[2021-11-15] VITALS (14 sets, daily range): BP systolic 114–158; BP diastolic 67–103; PULSE 67–125; RESP 16–22; TEMP 36.4–36.8; O2SAT 98–100; BMI 35.2
[2021-11-15] MEDS: Lactated Ringers 1,000 ML 200 ML IV (08:45)
[2021-11-15] MEDS: AZITHROMYCIN 500 MG in Normal Saline 250 ML 250 MG IVPB (09:17)
[2021-11-15] MEDS: Sodium Citrate 30 ML CUP PO (09:18)
[2021-11-15] MEDS: Normal Saline Flush 10 ML SYR IVP ×3 (09:19→21:59)
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
[2021-11-15] MEDS: ceFAZolin 2 GM/50 ML BAG IVPB (09:45)
[2021-11-15] MEDS: Bupivacaine 0.25% Pres-Free 30 ML VIAL (09:55)
--- NOTE | 2021-11-15 10:04 | PLAC_PTH ---
PATIENT: Jie White LOC: OBS U#:[id number] AGE/SX: 31/F ROOM: OBS.301 RE11/15/[address]: Tasneem Mao : 1990 BED: A DIS: 11/17/2021 SPEC #: [id number] RECD: 11/15/21 12:57 STATUS: CRISTINA REQ #: [id number] REINA: 11/15/21 10:[address]: Tasneem Mao DEPT: Surgical Specimen RECD BY: Juliana Orellana ENTERED: 11/15/21 12:58 SP TYPE: PLAC OTHR DR: Unknown,Unknown Tissues: 1 - PLACENTA (3RD TRIMESTER) Procedures: GROSS AND MICRO LEVEL 5 Comments: [id number]
--- NOTE | 2021-11-15 10:35 | W.PM.OBCSECT ---
Date of service: 11/15/21 Time of Service: 10:35 Operative Note Operative Note Delivery Method: Scheduled (martinez breech presentation at 38w3d EGA. unsuccessful external cephalic version) and Primary NTSV>37 Weeks: Yes DATE OF PROCEDURE: 11/15/21 PRE-OP DIAGNOSES: martinez breech presentation at term, unsuccessful ECV. POST-OP DIAGNOSES: same short umbilical cord PROCEDURE: Low transverse delivery. SURGEON: Tasneem Mao Assisting Surgeon: Enriqueta Hernández Estimated blood loss (mL): 800 Pathology: other (placenta with umbilical cord to pathology) Complications: Other (evulsion of umbilical cord from placenta with delivery of fetus.) Patient's condition: stable Indications: 31-year-old G2, P0 female currently 38W3D EGA who transfered care from community development officer after onset of gestational hypertension at 35W EGA.? Patient had reassuring surveillance with twice weekly NSTs.? At the time of 38w2d Leoplod exam the presenting part was not vertex. Bedside ultrasound confirmed the fetus to be in the martinez breech position.? That day an attempted external cephalic version was attempted and was unsuccessful. Pt consented to a LTCS to be performed on 11/15/21. Findings: Viable male infant in martinez breech presentation. Light meconium staining of amniotic fluid. umbilical cord was noted to be detached from placental portion of the cord. The portion of the cord measured 4 inches. It was clamped and the handed off to the waiting contract administration manager. The remaining umbilical cord measured 6 inches. The umbilical cord had 3 vessels and central attachment. Placenta with normal configuration. Nl uterus and adnexa. Infant wt: 3720gms. Apgars: 5 @ 1min, 9 @ 5min. His parents will name him Parviz. Procedure Description: Patient was taken to the operating room she is placed in the sitting position and spinal anesthesia was administered without difficulty. She had received preoperative antibiotics as ordered. She was placed in the dorsal supine position with a leftward tilt. SCDs and a Romero catheter to gravity drainage were in place. A vaginal prep with Betadine was performed and the patient was prepped and draped in the usual sterile fashion. After a adequate level of anesthesia was achieved a Pfannenstiel skin incision was made approximately 2 cm superior to the pubic symphysis using a scalpel and the underlying subcutaneous tissue dissected using Bovie electrocautery to the level of the rectus fascia. The rectus fascia was then nicked in the midline and the fascial incision extended laterally using Bovie electrocautery . 2 Kaye clamps were applied to the inferior rectus fascia and the rectus fascia was dissected off of the underlying rectus muscles using Bovie electrocautery and blunt technique. A similar technique was carried out on the superior rectus fascia. Rectus muscles were then in the midline and the peritoneum entered bluntly. The peritoneal incision was extended laterally using blunt technique. The vesicle-uterine peritoneum over lower uterine segment was incised with curved Rainey scissors and the bladder flap created bluntly. Scalpel was used to incise the lower uterine segment in a transverse fashion. The uterine incision was extended bluntly and the amniotic sac was ruptured and a finger was placed on each anterior superior iliac crest of the breech presentation and the buttocks followed by the trunk were delivered to the level of the shoulders and the head was delivered atraumatically. The connection to the umbilical cord attatched to the placenta was noted to be completely evulsed approximately 6 cm from it's umbilical insertion. That section of cord was doubly clamped and cut and the infant handed off to the waiting pediatric team . The placenta was extracted and the uterus exteriorized, cleared of all clots and debris and the uterine incision reapproximated with a running lock suture of 0 Vicryl followed by a second imbricating suture of 0 Vicryl. Uterine incision was noted be hemostatic. The uterus was returned to the abdomen and the paracolic gutters cleared of all clots and debris. Uterine incision, the bladder flap, and the abdominal wall were inspected and noted to be hemostatic. The rectus fascia was reapproximated with a running suture of 0 Vicryl. space within the subcutaneous tissue closed with a running suture of 2-0 Vicryl. The skin incision was reapproximated with a subcuticular closure of 4-0 Monocryl. Steri-Strips were placed over the incision and the incision covered with a dry sterile dressing.. The uterus was massaged for any remaining clots and debris. The patient was transported to recovery area in stable condition. All sponge, lap, and needle counts correct x2.
--- NOTE | 2021-11-15 14:38 | ANES.POST_ITS ---
Postoperative Evaluation Date, Time and Location Date Performed: 11/15/21 Time Performed: 14:30 Patient Location: Obstetrics Vital Signs Most Recent Imported Vital Signs: Most Recent Vital Signs Temp Pulse Resp BP Pulse Ox 36.5 C 70 18 138/88 98 11/15/21 12:00 11/15/21 12:00 11/15/21 12:00 11/15/21 12:00 11/15/21 12:00 Pain Score Most Recent Pain Score: Most Recent Pain Score Pain Level [Abdomen] 0 11/15/21 12:00 Pain Level 0 11/15/21 11:25 Assessment Mental Status: Awake (Alert & Oriented to Patient Baseline) Airway and Respiratory Function: Patent airway with normal (patient baseline) respiratory exam Cardiovascular Function: Hemodynamically Stable Hydration Status: Adequately Hydrated Nausea & Vomiting: No Nausea or Vomiting Pain: Pain is tolerable per patient (States pain 2/10, appears comfortable, den ies need for intervention ) Peripheral Nerve Block: Other (Motor function back to baseline)
[2021-11-15] MEDS: Ketorolac 30 MG/ML VIAL IVP ×2 (16:29→21:57)
[2021-11-16 04:00] VITALS: BP 126/88; PULSE 75; RESP 18; TEMP 36.6; O2SAT 97
[2021-11-16] MEDS: Ketorolac 30 MG/ML VIAL IVP (04:16)
[2021-11-16] MEDS: Levothyroxine 50 MCG TAB PO (05:50)
[2021-11-16 07:56] LABS: Abs Immature Grans 0.04 10^3/uL (0.0-0.06); Absolute Basophil Count 0.03 10^3/uL (0.0-0.2); Absolute Eosinophil Count 0.15 10^3/uL (0.0-0.7); Absolute Lymphocyte Count 1.73 10^3/uL (1.2-3.4); Absolute Monocyte Count 0.85 10^3/uL (0.1-0.8); Basophils % 0.3; Eosinophils % 1.3; HCT 29.6 % (36.0-46.0); HGB 10.3 g/dL (11.2-15.7); Immature Grans % 0.4; Lymphocytes % 15.2; MCH 30.2 pg (27.0-33.0); MCHC 34.8 % (32.0-36.0); MCV 87 fL (80-95); MPV 12.7 fL (8.0-11.0); Monocytes % 7.5; Neutrophils % 75.3; Platelet Count 135 10^3/uL (130-400); RBC 3.41 10^6/uL (3.93-5.22); RDW 12.6 % (11.7-14.6); RDW-SD 40.1 fL; WBC 11.36 10^3/uL (4.4-10.8)
[2021-11-16 07:58] LABS: Absolute Neutrophil Count 8.55 10^3/uL (1.2-6.7)
[2021-11-16 08:15] VITALS: BP 120/72; PULSE 90; RESP 17; TEMP 36.8; O2SAT 99
--- NOTE | 2021-11-16 08:24 | W.PM.OBPNV1 ---
Date of service: 11/16/21 Time of Service: 08:25 Assessment and Plan Assessment and plan (1) Status post primary low transverse section: Status: Acute Assessment and plan: Patient is postoperative day #1 status post primary low transverse section for breech presentation at term. She also had complicated by gestational hypertension which is stable. As of note, at the time of section she had a markedly short umbilical cord. Intraoperative blood loss was normal with postoperative hemoglobin at 10.3. Plan for today will be ambulation, increase her activity, regular diet, transition to oral pain medication. I would anticipate discharge home in the next 24 to 48 hours. All questions were (2) Breech presentation delivered: Status: Acute (3) COVID-19: Status: Acute Assessment and plan: Patient had COVID-19 around the time of conception (4) Failed external cephalic version: Status: Acute Subjective Subjective Interval history: Patient seen and examined this morning. Doing well. Good pain control. Romero catheter is currently out. She has been up to the chair. We encouraged ambulation. She is continuing to breast-feed without significant of Patient's Mood: Good [place] baby status: Doing well and Nursing well Exam Physical Exam Vital signs: Temp Pulse Resp BP Pulse Ox 98.2 F 90 17 120/72 99 11/16/21 08:15 11/16/21 08:15 11/16/21 08:15 11/16/21 08:15 11/16/21 08:15 Vital Signs Reviewed: Yes Constitutional Constitutional: no acute distress Neck Exam Neck Exam: Normal Respiratory Exam Respiratory Exam: Normal Cardiovascular Exam Cardiovascular Exam: Normal Abdominal Exam Abdomen: Tender Comments: Incision clean, dry, intact. Sterile dressing still in place. May remove in the shower today Fundal Exam Fundus: Below Umbilicus and Firm Extremities Exam Extremity Exam: Edema (1+ bilateral); negative Calf Tenderness Skin Exam Skin Exam: Normal Neurological Exam Neurological Exam: Normal Psychiatric Exam Psychiatric Exam: Normal Results Hemoglobin/Hematocrit: Hgb 10.3 g/dL (11.2-15.7) L 11/16/21 07:54 Hct 29.6 % (36.0-46.0) L 11/16/21 07:54 Abnormal Lab Findings: Abnormal Labs 11/16/21 07:54 WBC 11.36 H RBC 3.41 L Hgb 10.3 L Hct 29.6 L MPV 12.7 H Absolute Neutrophils 8.55 H Absolute Monocytes 0.85 H
[2021-11-16] MEDS: Acetaminophen 325 MG TAB 650 MG PO ×2 (13:05→20:51)
[2021-11-16] MEDS: Ibuprofen 600 MG TAB PO ×2 (13:06→20:52)
[2021-11-16 16:01] VITALS: BP 131/88; PULSE 74; RESP 14; TEMP 37.2
[2021-11-16 20:00] VITALS: BP 129/87; PULSE 66; RESP 17; TEMP 36.8
[2021-11-16] MEDS: Docusate Sodium 100 MG CAP PO (20:51)
[2021-11-17 04:15] VITALS: BP 138/90; PULSE 68; RESP 17; TEMP 36.6
[2021-11-17] MEDS: Acetaminophen 325 MG TAB 650 MG PO ×2 (04:52→08:48)
[2021-11-17] MEDS: Ibuprofen 600 MG TAB PO (04:53)
[2021-11-17] MEDS: Levothyroxine 50 MCG TAB PO (06:10)
[2021-11-17 08:30] VITALS: BP 126/89; PULSE 73; RESP 14; TEMP 37
[2021-11-17] MEDS: Prenatal Multivitamin w/CA,FE TAB 1 TAB PO (08:48)
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
== END 2021-11-17 14:00 | disposition home or self-care (01) | DRG 787 ==
PROVIDERS: Admitting Provider Obstetrics & Gynecology Gynecology; Visit Provider Obstetrics & Gynecology Gynecology
PROC: 10D00Z1 Extraction of Products of Conception, Low, Open Approach (ICD-10-PCS; CPT 59514; principal; 2021-11-15 09:15)
DX: O32.9XX0 Maternal care for malpresentation of fetus, unspecified, not applicable or unspecified (principal); O99.354 Diseases of the nervous system complicating childbirth; Z37.0 Single live birth; F41.0 Panic disorder [episodic paroxysmal anxiety]; Z3A.38 38 weeks gestation of pregnancy; O99.284 Endocrine, nutritional and metabolic diseases complicating childbirth; O99.344 Other mental disorders complicating childbirth; E03.9 Hypothyroidism, unspecified; O13.4 Gestational [pregnancy-induced] hypertension without significant proteinuria, complicating childbirth; O77.0 Labor and delivery complicated by meconium in amniotic fluid; G43.909 Migraine, unspecified, not intractable, without status migrainosus; Z86.16 Personal history of COVID-19
CPT/HCPCS: 59514; 36415; 59025; 85025; 88307; G0378; J0456; J0690; J1885; J2370; J2405; J3010

== ENCOUNTER 2021-11-21 15:38 | Outpatient (CLI) | payer MEDICAID, SELFPAY ==
--- NOTE | 2021-11-21 17:14 | W.PM.PROGNOT ---
Date of Service Date of service: 11/21/21 Time of Service: 17:14 Assessment and Plan Assessment and plan (1) Status post primary low transverse section: Status: Acute Assessment and plan: doing well. Working on (2) Elevated blood pressure reading: Status: Acute Assessment and plan: Await labs. Consider labetalol PO if BP remains elevated Subjective Subjective Interval history since last seen: Patient there on the center due to elevated blood pressure at home visit by Home Merchandise Support Associate, 140/90, repeat 160/100. Feeling fatigued. No cephalgia, no visual changes, no epigastric pain Exam Const General: cooperative, healthy appearing, comfortable and anxious HENMT Head: normal to inspection Eyes General: appearance normal, both eyes and all related structures Resp Effort & Inspection: normal respiratory effort Cardio Rate: regular rate GI Inspection: normal to inspection and incision (healing well) Palpation: soft, not firm and no guarding Neuro DTR's: Rt Patellar: 2+, Lt Patellar: 2+, Rt Ankle: 2+ and Lt Ankle: 2+ Extrem General: normal to inspection, no calf tenderness bilaterally and edema (1+) Psych Appearance: grossly normal Mental Status: mental status grossly normal Speech and Movement: speech and movement normal Mood: anxious mood Affect: normal affect Attitude: cooperative Thought Process: normal
[2021-11-21 17:16] VITALS: BP 153/100; PULSE 71
[2021-11-21 17:17] VITALS: BP 153/100; PULSE 71; RESP 18; TEMP 36.9; O2SAT 98
[2021-11-21 17:53] LABS: Abs Immature Grans 0.04 10^3/uL (0.0-0.06); Absolute Basophil Count 0.02 10^3/uL (0.0-0.2); Absolute Eosinophil Count 0.29 10^3/uL (0.0-0.7); Absolute Lymphocyte Count 1.83 10^3/uL (1.2-3.4); Absolute Monocyte Count 0.56 10^3/uL (0.1-0.8); Absolute Neutrophil Count 5.85 10^3/uL (1.2-6.7); Basophils % 0.2; Eosinophils % 3.4; HCT 31.6 % (36.0-46.0); HGB 10.8 g/dL (11.2-15.7); Immature Grans % 0.5; Lymphocytes % 21.3; MCH 29.7 pg (27.0-33.0); MCHC 34.2 % (32.0-36.0); MCV 87 fL (80-95); MPV 11.1 fL (8.0-11.0); Monocytes % 6.5; Neutrophils % 68.1; Platelet Count 294 10^3/uL (130-400); RBC 3.64 10^6/uL (3.93-5.22); RDW 12.2 % (11.7-14.6); WBC 8.59 10^3/uL (4.4-10.8)
--- NOTE | 2021-11-21 17:53 | NUR.NOTE ---
Nursing Note: Pt arrived to triage accompanied by and for elevated b/p's at home per home tankroom tender. Pt is post op from primary c/s approximately 1 week. Pt denies blurry vision, h/a's, or RUQ pain. Pt states overall feels well. Incision c/d/i. Steri strips in place. Clean catch urine obtained, WDL, negative ketones. B/P elevated 153/100. MD Edgar aware. See new orders.
[2021-11-21] MEDS: Labetalol 100 MG TAB PO (18:03)
[2021-11-21 18:20] LABS: ALT 35 U/L (14-59); AST 27 U/L (15-37); Albumin 3.2 g/dL (3.4-5.0); Alkaline Phosphatase 85 U/L (46-116); Anion Gap 8.5 mmol/L (3-11); BUN 18 mg/dL (7-18); Bilirubin, Total 0.4 mg/dL (0.2-1.0); CO2 25.5 mmol/L (21.0-32.0); CREATININE 0.7 mg/dL (0.55-1.02); Calcium 8.5 mg/dL (8.5-10.1); Chloride 104 mmol/L (98-107); Estimated GFR 119.24 (mL/min/1.73m2); Glucose 73 mg/dL (74-106); Potassium 3.8 mmol/L (3.5-5.1); Sodium 138 mmol/L (136-145); TSH (W/Ref FT4) 2.06 uIU/mL (0.36-3.74); Total Protein 7.3 g/dL (6.4-8.2)
[2021-11-21 18:40] VITALS: BP 144/84; PULSE 88
[2021-11-21 18:43] VITALS: BP 144/84; PULSE 88
--- NOTE | 2021-11-21 19:22 | NUR.NOTE ---
Pt discharged home ambulatory by Carly Henderson RN at 1855. Provider had previously instructed Phil Ludwig RN that pt could be discharged once her BP was stable and pt was ready. Pt did not receive printed discharge instructions but did receive verbal instructions by Phil Ludwig RN in regard to signs and symptoms to report and/or return for as well as prescription of Labatelol. Pt had already left when this RN entered her room at 1900.
== END 2021-11-21 18:55 | disposition home or self-care (01) ==
LOC: OBS 19:09 → BCD 11-22 13:41
PROVIDERS: Visit Provider Obstetrics & Gynecology
DX: O90.89 Other complications of the puerperium, not elsewhere classified (principal); R03.0 Elevated blood-pressure reading, without diagnosis of hypertension
CPT/HCPCS: 80053; 99211; 84443; 85025

== ENCOUNTER 2022-09-01 09:05 | Emergency (ER) | payer MEDICAID, SELFPAY ==
[2022-09-01 09:15] VITALS: BP 130/83; PULSE 93; RESP 18; TEMP 36.7; O2SAT 97
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
[2022-09-01] MEDS: Amoxicillin 875/Clav. 125 TAB PO (10:22)
== END 2022-09-01 10:29 | disposition home or self-care (01) ==
PROVIDERS: Emergency Provider Emergency Medicine; PCP Nurse Practitioner Family
DX: K08.89 Other specified disorders of teeth and supporting structures (principal)
CPT/HCPCS: 99283; 99282

== ENCOUNTER 2023-08-28 11:47 | Outpatient (REF) | payer MEDICAID, SELFPAY ==
[2023-08-29 13:06] LABS: Chlamydia Result Negative (Negative); GC Result Negative (Negative)
== END 2023-08-28 11:48 | disposition home or self-care (01) ==
LOC: LBN 11:47
PROVIDERS: PCP Nurse Practitioner Family; Visit Provider Nurse Practitioner Women's Health
DX: Z11.3 Encounter for screening for infections with a predominantly sexual mode of transmission (principal)
CPT/HCPCS: 87491; 87591